=== PATIENT | female | born 1985 | race Caucasian/White ===

== ENCOUNTER 2018-08-10 13:56 | Emergency (ER) | payer MEDICAID, OTHER ==
--- NOTE | 2018-08-10 14:41 | EDPHY ---
H & P Stated Complaint: c/o dizziness/capps since falling hitting head 3 days ago Time Seen by Provider: 08/10/18 14:26 HPI/ROS: CHIEF COMPLAINT: Concussion HISTORY OF PRESENT ILLNESS: Patient is a 32-year-old female who was drinking on the Thursday night. She fell and hit the back of her head. She does not remember hitting the front of her head. She was dazed but was not unconscious. She does not remember going home but did make it home and went to bed. She states that for the subsequent 3 days she has had headache. She also noticed some bruising to her right forehead and upper eyelid although she does not remember hitting the front of her head. No vision or hearing changes. No nausea vomiting. No seizures. No neck pain. Mom was concerned and brought her here for CT scan. Severity: Moderate Modifying factors: None REVIEW OF SYSTEMS: Constitutional: denies: chills, fever, recent illness, recent injury EENTM: denies: blurred vision, double vision, nose congestion Respiratory: denies: cough, shortness of breath Cardiac: denies: chest pain, irregular heart rate, lightheadedness, palpitations Gastrointestinal/Abdominal: denies: abdominal pain, diarrhea, nausea, vomiting, blood streaked stools Genitourinary: denies: dysuria, frequency, hematuria, pain Musculoskeletal: denies: joint pain, muscle pain Skin: denies: lesions, rash, jaundice, bruising Neurological: denies: headache, numbness, paresthesia, tingling, dizziness, weakness Hematologic/Lymphatic: denies: blood clots, easy bleeding, easy bruising Immunologic/allergic: denies: HIV/AIDS, transplant 10 systems reviewed and negative except as noted EXAM: GENERAL: Well-appearing, well-nourished and in no acute distress. HEAD: No visible hematoma. Small amount of bruising to right forehead and right upper eyelid. EYES: Pupils equal round and reactive to light, extraocular movements intact, sclera anicteric, conjunctiva are normal. No raccoon sign or Grimaldo bettina ENT: TMs normal, nares patent, oropharynx clear without exudates. Moist mucous membranes. NECK: Normal range of motion, supple without lymphadenopathy or JVD. LUNGS: Breath sounds clear to auscultation bilaterally and equal. No wheezes rales or rhonchi. HEART: Regular rate and rhythm without murmurs, rubs or gallops. ABDOMEN: Soft, nontender, normoactive bowel sounds. No guarding, no rebound. No masses appreciated. BACK: No CVA tenderness, no spinal tenderness, step-offs or deformities EXTREMITIES: Normal range of motion, no pitting or edema. No clubbing or cyanosis. NEUROLOGICAL: Cranial nerves II through XII grossly intact. Normal speech, normal gait. 5/5 strength, normal movement in all extremities, normal sensation , normal reflexes PSYCH: Normal mood, normal affect. SKIN: Warm, dry, normal turgor, no visible rashes or lesions. Source: Patient Exam Limitations: No limitations - Personal History LMP (Females 10-55): Extended Cycle BCP/Inj - Medical/Surgical History Hx Asthma: Yes Hx Chronic Respiratory Disease: No Hx Diabetes: No Hx Cardiac Disease: No Hx Renal Disease: No Hx Cirrhosis: No Hx Alcoholism: No Hx HIV/AIDS: No Hx Splenectomy or Spleen Trauma: No Other PMH: appy; asthma; orif R ankle - Family History Significant Family History: No pertinent family hx - Social History Smoking Status: Former smoker Alcohol Use: Occasionally Drug Use: Marijuana Constitutional: Initial Vital Signs Temperature (C) 37.2 C 08/10/18 14:15 Heart Rate 69 08/10/18 14:15 Respiratory Rate 16 08/10/18 14:15 Blood Pressure 113/76 08/10/18 14:15 O2 Sat (%) 95 08/10/18 14:15 O2 Delivery Mode Room Air Allergies/Adverse Reactions: Milk Containing Products Allergy (Verified 08/10/18 14:18) Home Medications: Medication Instructions Recorded NK [No Known Home Meds] 08/10/18 Medical Decision Making - Diagnostics Imaging: Discussed imaging studies w/ call center specialist Radiologist ED Course/Re-evaluation: Head CT ordered in this adult patient for trauma for the following indication: Fall greater than 3 ft, persistent headache and usual bruising 3:20 p.m. the patient is doing well. We discussed her head CT which is reassuring. She and her mom feel comfortable going home. We discussed concussions and post concussive symptoms. We discussed follow-up as well as indications for returning. Differential Diagnosis: Partial list of the Differential diagnosis considered include but were not limited to; concussion, contusion and although unlikely based on the history and physical exam, I also considered fracture, intracranial bleeding, seizure, withdrawal. I discussed these differential diagnoses and the plan with the patient as well as the usual and expected course. The patient understands that the diagnosis is provisional and that in medicine we are not always correct and that further workup is often warranted. Usual and customary warnings were given. All of the patient's questions were answered. The patient was instructed to return to the emergency department should the symptoms at all worsen or return, otherwise to followup with the physician as we discussed. - Data Points Point of Care Test Results: Urine Collection Date 08/10/18 Collection Time 14:50 HCG Results Negative Urine Dip Collection Date 08/10/18 Collection Time 14:51 Specific [place] (1.002-1.030) 1.000 PH (5.0-7.5) 5.5 Leukocytes (Negative) Negative Nitrites (Negative) Negative Protein (Negative) Negative Glucose (Negative) Negative Ketones (Negative) Negative Urobilnogen (0.2-1.0 EU) 0.2 Bilirubin (Negative) Negative Blood (Negative) Negative Departure - Departure Disposition: Home, Routine, Self-Care Clinical Impression: Concussion Qualifiers: Encounter type: initial encounter Loss of consciousness presence/duration: without LOC Qualified Code(s): S06.0X0A - Concussion without loss of consciousness, initial encounter Condition: Fair Instructions: Concussion (ED) Referrals: NONE *PRIMARY CARE P,. [Primary Care Provider] - As per Instructions Susan Dawn MD [Medical Doctor] - 5-7 days, if not improved
[2018-08-10 15:32] VITALS: BP 116/72
== END 2018-08-10 15:32 | disposition home or self-care (01) ==
DX: S06.0X0A Concussion without loss of consciousness, initial encounter (principal); F10.920 Alcohol use, unspecified with intoxication, uncomplicated; W01.198A Fall on same level from slipping, tripping and stumbling with subsequent striking against other object, initial encounter
CPT/HCPCS: 81025-ER